=== PATIENT | female | born 1985 | race American Indian/Alaskan Native ===

== ENCOUNTER 2017-02-26 15:48 | Emergency (ER) | payer OTHER ==
--- NOTE | 2017-02-26 19:44 | XRay Report ---
FINAL REPORT EXAM: XR SHOULDER 2+V RT HISTORY: RT SHOULDER PAIN TECHNIQUE: AP, Y, and oblique views of the right shoulder PRIORS: None. FINDINGS: There is no evidence of acute fracture or dislocation. Joint spaces are maintained and bony mineralization is normal. Soft tissues are unremarkable. IMPRESSION: No acute abnormality identified in the right shoulder.
--- NOTE | 2017-02-26 19:58 | Emergency Department Report ---
Upper Extremity - HPI Chief Complaint: Shoulder Injury Stated Complaint: RIGHT ARM PAIN Time Seen by Provider: 02/26/17 19:30 Upper Extremity: Right Shoulder (pain with ROM) Occurred When: 2 Days Mechanism: Hyperextension Severity: moderate Symptoms: Yes Pain with Movement, Yes Limited Range of Movement, No Deformity, No Numbness, No Weakness, No Swelling, No Bruising/Ecchymosis, No Laceration or Abrasion Other History: This is a 31 y.o. female presents with right shoulder pain for 2 days. She remember turn to the right and hearing a pop. She is unable to reach up and her arm feels heavy. States she is taking NSAID's for pain with minimal improvement. Denies numbness, tingling, swelling, or deformity. Denies falling or bumping into something. ED Review of Systems ROS: Stated complaint: RIGHT ARM PAIN Other details as noted in HPI Constitutional: no symptoms reported, see HPI. denies: chills, diaphoresis, fever, malaise, weakness Respiratory: denies: cough, shortness of breath, wheezing Cardiovascular: denies: chest pain, palpitations Gastrointestinal: denies: abdominal pain, nausea, diarrhea Musculoskeletal: arthralgia (right shoulder pain 7/10, decreased ROM) Skin: denies: rash, lesions Neurological: denies: headache, weakness, paresthesias ED Past Medical Hx - Past Medical History Previous Medical History?: No - Surgical History Additional Surgical History: left foot, D&C - Social History Smoking Status: Never Smoker Substance Use Type: None - Medications Home Medications: Home Medications Medication Instructions Recorded Confirmed Last Taken Type HYDROcodone/ACETAMINOPHEN [[place] 1 each PO Q6HR #20 tablet 10/01/13 Unknown Rx 5/325 Tablet] Ibuprofen [Motrin] 600 mg PO Q8H PRN #60 tablet 10/01/13 Unknown Rx Ibuprofen 800 mg PO Q6H PRN #28 tablet 02/26/17 Unknown Rx Tizanidine HCl [Zanaflex] 4 mg PO TID 10 Days #30 capsule 02/26/17 Unknown Rx Upper Extremity Exam - Exam General: Vital signs noted. No distress. Alert and acting appropriately. Head and Torso: Yes HEENT Abnormality, No Neck Tenderness, No Chest/Lungs Abnormality, No Abdominal Tenderness, No Back Tenderness Shoulder Exam: Yes Shoulder Tenderness, Yes AC Joint Tenderness, No Clavicle Tenderness, No Normal Range of Motion in Shoulder (limited ROM independently, 30 degree external rotation passively, unable to tolerate other ROM positions, negative young test), No Shoulder Deformity Arm Exam: No Arm/Humerus Tenderness, No Arm Deformity Elbow: Yes Normal Range of Motion in Elbow, No Elbow Tenderness, No Elbow Deformity Forearm: No Forearm Tenderness, No Forearm Deformity, No Pain with Pronation, No Pain with Supination Wrist: No Wrist Tenderness, No Normal ROM in Wrist, No Wrist Deformity, No Snuffbox Tenderness, No Pain with Axial Thumb Compression Hand: Yes Normal ROM in Digit(s), No Hand Tenderness, No Hand Deformity, No Digit Tenderness, No Digit(s) Deformity, No Tendon Dysfunction CMS Exam: Yes Normal Distal Pulses, Yes Normal Capillary Refill, Yes Normal Distal Sensation, No Broken Skin ED Course Vital Signs 02/26/17 16:45 Temperature 98.6 F Pulse Rate 80 Respiratory 16 Rate Blood Pressure 119/69 O2 Sat by Pulse 100 Oximetry ED Medical Decision Making - Radiology Data Radiology results: image reviewed FINDINGS: There is no evidence of acute fracture or dislocation. Joint spaces are maintained and bony mineralization is normal. Soft tissues are unremarkable. IMPRESSION: No acute abnormality identified in the right shoulder. - Medical Decision Making This is a 31 y.o. female presents with right shoulder pain for 2 days. She heard a pop while turning to the right, with minimal swelling. Denies falling or bumping into something. Limited ROM due to pain. 30 degree extension with passive ROM, unable to tolerate further. Started on ibuprofen and tizanadine Follow up with PCP. Critical care attestation.: If time is entered above; I have spent that time in minutes in the direct care of this critically ill patient, excluding procedure time. ED Disposition Clinical Impression: Shoulder pain, right Qualifiers: Chronicity: acute Qualified Code(s): M25.511 - Pain in right shoulder Shoulder arthralgia Qualifiers: Laterality: right Qualified Code(s): M25.511 - Pain in right shoulder Disposition: - TO HOME OR SELFCARE Is pt being admited?: No Does the pt Need Aspirin: No Condition: Stable Instructions: Shoulder Sprain (ED), Arthralgia (ED) Additional Instructions: Follow up with Primary Care Provider as discussed. Take pain medication as prescribed. Prescriptions: Ibuprofen 800 mg PO Q6H PRN #28 tablet PRN Reason: Pain Tizanidine HCl [Zanaflex] 4 mg PO TID 10 Days #30 capsule Referrals: ATUL METCALF MD [Primary Care Provider] - 3-5 Days [facility] [Outside] - 3-5 Days [facility] [Outside] - 3-5 Days [facility] [Outside] - 3-5 Days Time of Disposition: 20:20 Print Language: TELUGU
[2017-02-26 20:28] VITALS: BP 110/76
== END 2017-02-26 20:25 | disposition home or self-care (01) ==
LOC: ED 15:48
DX: M25.511 Pain in right shoulder (principal); Z88.2 Allergy status to sulfonamides
CPT/HCPCS: 99283

== ENCOUNTER 2017-06-20 06:37 | Emergency (ER) | payer OTHER ==
[2017-06-20 06:45] VITALS: BP 126/93
--- NOTE | 2017-06-20 07:38 | Emergency Department Report ---
[facility] Chief Complaint: Eye Problems Stated Complaint: RIGHT EYE PAIN Time Seen by Provider: 06/20/17 07:26 Duration: 1 Day Severity: mild (1/10 irritated) Symptoms: Yes Eye Itching (right eye), Yes Eye Redness (right eye without any injury), Yes Eye Pain (1/10), Yes Mucous Drainage (matting in this morning), Yes Contact Lens Use (she wears contacts but that she took her contacts out yesterday and she doesn't have any foreign body sensation. Most wears glasses which she doesn't have with her), No Purulent Drainage, No Blurred Vision, No Preceding URI, No H/O Allergic Rhinitis, No Trauma, No Fever, No Headache Other History: Patient reports that she woke up this morning and her right eye was closed shut his that she's been having itching and redness with some irritation of 1/10 since yesterday. Denies any other symptoms. Denies any trauma or blurred vision. Denies any fever or chills. Denies any cough or respiratory symptoms. No medication taken for eye irritation. No foreign body sensation. Nothing makes it better and nothing makes it worse ED Review of Systems ROS: Stated complaint: RIGHT EYE PAIN Other details as noted in HPI Comment: All other systems reviewed and negative Constitutional: no symptoms reported Eyes: eye pain, eye discharge, other (I redness right). denies: vision change ENT: denies: ear pain, throat pain, dental pain, hearing loss, epistaxis, congestion Respiratory: no symptoms reported Cardiovascular: denies: chest pain, palpitations, dyspnea on exertion, orthopnea , edema, syncope, paroxysmal nocturnal dyspnea Musculoskeletal: denies: back pain, joint swelling, arthralgia, myalgia Skin: denies: rash Neurological: denies: headache, numbness, paresthesias, confusion, abnormal gait , vertigo ED Past Medical Hx - Past Medical History Previous Medical History?: No - Surgical History Past Surgical History?: Yes Additional Surgical History: left foot, D&C - Family History Family history: no significant - Social History Smoking Status: Never Smoker Substance Use Type: None - Medications Home Medications: Home Medications Medication Instructions Recorded Confirmed Last Taken Type HYDROcodone/ACETAMINOPHEN [[place] 1 each PO Q6HR #20 tablet 10/01/13 Unknown Rx 5/325 Tablet] Ibuprofen [Motrin] 600 mg PO Q8H PRN #60 tablet 10/01/13 Unknown Rx Ibuprofen 800 mg PO Q6H PRN #28 tablet 02/26/17 Unknown Rx Tizanidine HCl [Zanaflex] 4 mg PO TID 10 Days #30 capsule 02/26/17 Unknown Rx Gentamicin 0.3% Ophth Soln 2 drops OD Q6H 7 Days #1 bottle 06/20/17 Unknown Rx [facility] Exam - Exam General: Vital signs noted. No distress. Alert and acting appropriately. This is a 32-year-old female well-nourished well-developed in no acute distress. Eye Exam: Right Injection, Right Mucous Discharge, Both EOMI (see visual acuity charted by RN), Both Lid Foreign Body, Neither Chemosis, Neither Abnormal Pupil , Neither Eye Foreign Body, Neither Purulent Discharge, Neither Corneal Edema, Neither Photophobia HEENT: No Nasal Congestion, No Pharyngeal Erythema Remainder of HEENT: Normal Lungs: Yes Clear Lung Sounds (CTAB), No Good Air Exchange, No Wheezes, No Stridor, No Cough, No Nasal Flaring, No Retractions, No Use of Accessory Muscles Exam: Neck: Supple, full range of motion and no lymphadenopathy. Lungs: Clear to auscultate bilaterally, no rhonchi wheezes or rales. Normal work of breathing and. CV: S1, S2. Regular rate and rhythm no murmur. Skin: Clean, dry and intact no rashes or lesions. Psych: Normal mood and behavior ED Course Vital Signs 06/20/17 06:42 Temperature 98.6 F Pulse Rate 76 Respiratory 16 Rate Blood Pressure 126/93 O2 Sat by Pulse 100 Oximetry - Reevaluation(s) Reevaluation #1: 06/20/17 08:33 She is stable throughout ED course. Visual acuity done ED Medical Decision Making - Medical Decision Making ED course: This is a 32-year-old female that's here complaining and off read, irritated right eye that was matted shut this morning when she woke up. Patient with physical finding for right conjunctivitis and although she wears contacts she does not have any foreign body sensation and said that she does not wear contact a lot she usually wears her glasses she does not have with her. Please see augmentation visual acuity. I discussed the patient she needs to follow-up with user support analyst in the morning and she was discharged home a prescription for gentamicin ophthalmic eyedrops. Tetanus vaccine is up-to-date Critical care attestation.: If time is entered above; I have spent that time in minutes in the direct care of this critically ill patient, excluding procedure time. ED Disposition Clinical Impression: Conjunctivitis, right eye Qualifiers: Conjunctivitis type: acute Acute conjunctivitis type: unspecified Qualified Code(s): H10.31 - Unspecified acute conjunctivitis, right eye Disposition: - TO HOME OR SELFCARE Is pt being admited?: No Does the pt Need Aspirin: No Condition: Stable Instructions: Conjunctivitis (ED) Additional Instructions: Avoid wearing contacts at the eyes are completely better. Take gentamicin eyedrops for [facility] good hand hygiene See Discharge ejection on conjunctivitis Follow-up with user support analyst in the morning Prescriptions: Gentamicin 0.3% Ophth Soln 2 drops OD Q6H 7 Days #1 bottle Referrals: PRIMARY CAREMD [Primary Care Provider] - 2-3 Days [facility] [Outside] - 2-3 Days HO CALERO MD [Staff Physician] - 24 Hours Forms: Work/School Release Form(ED)
== END 2017-06-20 08:41 | disposition home or self-care (01) ==
LOC: ED 06:37
DX: H10.9 Unspecified conjunctivitis (principal)
CPT/HCPCS: 99282

== ENCOUNTER 2018-12-26 09:10 | Emergency (ER) | payer SELFPAY ==
[2018-12-26 09:17] VITALS: BP 108/73
--- NOTE | 2018-12-26 10:43 | Emergency Department Report ---
Abscess Boil HPI - HPI Chief Complaint: Skin/Abscess/Foreign Body Stated Complaint: BUMP ON CHEST Time Seen by Provider: 12/26/18 09:35 Duration: 2 Days Location: Chest History: No Fever, No Pain, No Purulent Drainage, No Numbness, No Foreign Body, No Previous History, No Insect Bite HPI: This is a 33-year-old female nontoxic, well nourished in appearance, no acute signs of distress presents to the ED with c/o of redness and pain to midsternum chest area. Patient denies any pus or drainage. Patient denies any fever, chills, nausea, vomiting, chest pain, shortness of breath, headache or stiff neck. Patient denies any allergies or significant past medical history. Patient stated she is up-to-date with tetanus within 5 years. Home Medications: Previous Rx's Medication Instructions Recorded Last Taken Type HYDROcodone/ACETAMINOPHEN [[place] 1 each PO Q6HR #20 tablet 10/01/13 Unknown Rx 5/325 Tablet] Ibuprofen [Motrin] 600 mg PO Q8H PRN #60 tablet 10/01/13 Unknown Rx Ibuprofen 800 mg PO Q6H PRN #28 tablet 02/26/17 Unknown Rx Tizanidine HCl [Zanaflex 4mg CAP] 4 mg PO TID 10 Days #30 capsule 02/26/17 Unknown Rx Gentamicin 0.3% Ophth Soln 2 drops OD Q6H 7 Days #1 bottle 06/20/17 Unknown Rx Acetaminophen/Codeine [Tylenol 1 tab PO Q6H PRN #12 tab 12/26/18 Unknown Rx /Codeine # 3 tab] cephALEXin [Keflex] 500 mg PO Q8HR #14 cap 12/26/18 Unknown Rx Allergies/Adverse Reactions: Allergies Allergy/AdvReac Type Severity Reaction Status Date / Time Sulfa (Sulfonamide Allergy Dizziness Verified 02/26/17 16:45 Antibiotics) ED Review of Systems ROS: Stated complaint: BUMP ON CHEST Other details as noted in HPI Constitutional: denies: chills, fever Eyes: denies: eye pain, eye discharge, vision change ENT: denies: ear pain, throat pain Respiratory: denies: cough, shortness of breath, wheezing Cardiovascular: denies: chest pain, palpitations Endocrine: no symptoms reported Gastrointestinal: denies: abdominal pain, nausea, diarrhea Genitourinary: denies: urgency, dysuria, discharge Musculoskeletal: denies: back pain, joint swelling, arthralgia Skin: denies: rash, lesions Neurological: denies: headache, weakness, paresthesias Psychiatric: denies: anxiety, depression Hematological/Lymphatic: denies: easy bleeding, easy bruising ED Past Medical Hx - Past Medical History Previous Medical History?: No - Surgical History Past Surgical History?: Yes Additional Surgical History: left foot, D&C - Social History Smoking Status: Never Smoker - Medications Home Medications: Home Medications Medication Instructions Recorded Confirmed Last Taken Type HYDROcodone/ACETAMINOPHEN [[place] 1 each PO Q6HR #20 tablet 10/01/13 Unknown Rx 5/325 Tablet] Ibuprofen [Motrin] 600 mg PO Q8H PRN #60 tablet 10/01/13 Unknown Rx Ibuprofen 800 mg PO Q6H PRN #28 tablet 02/26/17 Unknown Rx Tizanidine HCl [Zanaflex 4mg CAP] 4 mg PO TID 10 Days #30 capsule 02/26/17 Unknown Rx Gentamicin 0.3% Ophth Soln 2 drops OD Q6H 7 Days #1 bottle 06/20/17 Unknown Rx Acetaminophen/Codeine [Tylenol 1 tab PO Q6H PRN #12 tab 12/26/18 Unknown Rx /Codeine # 3 tab] cephALEXin [Keflex] 500 mg PO Q8HR #14 cap 12/26/18 Unknown Rx ED Abscess Boil Physical Exam - Exam General: Vital signs noted. No distress. Alert and acting appropriately. Front/Back of Body, Lg (Color): 1 - 1 cm small abscess present Size: 1 cm Exam: Yes Tenderness, Yes Fluctuance, Yes Normal Neurologic Exam, Yes Normal Circulation, No Surrounding Cellulites/Erythema, No Lymphangitis, No Crepitation, No Heart Murmur I & D Note - I & D Note I & D Note: Under sterile field, I used Betadine to cleanse the area. I then used 6 ml syringe with a 20-gauge hypo-needle and aspirated about 0.5 mL of purulent drainage. I then used sterile 0.9% normal saline flush to flush the wound with total volume of 40 mL used. A sterile 4 x 4 with tape has been applied as dressing. Bleeding is under control. Patient tolerated the procedure well with no signs of distress noted. ED Course Vital Signs 12/26/18 09:17 Temperature 98.8 F Pulse Rate 78 Respiratory 16 Rate Blood Pressure 108/73 [Right] O2 Sat by Pulse 98 Oximetry - Reevaluation(s) Reevaluation #1: 12/26/18 10:42 Patient is speaking in full sentences with no signs of distress noted. Critical care attestation.: If time is entered above; I have spent that time in minutes in the direct care of this critically ill patient, excluding procedure time. ED Medical Decision Making - Medical Decision Making This is a 33-year-old female that presents with abscess. Patient is stable and was examined by me. A sterile dressing has been applied. Patient was educated on proper wound care. Patient is discharged with Keflex and Tylenol with codeine and was instructed not to operate any machinery while taking Tylenol with codeine due to drowsiness. Patient was instructed to refer to Follow-up with a primary care doctor in 3-5 days or if symptoms worsen and continue return to emergency room as soon as possible. At time of discharge, the patient does not seem toxic or ill in appearance. No acute signs of distress noted. Patient agrees to discharge treatment plan of care. No further questions noted by the patient. ED Disposition Clinical Impression: Abscess, Encounter for incision and drainage procedure Disposition: DC-01 TO HOME OR SELFCARE Is pt being admited?: No Does the pt Need Aspirin: No Condition: Stable Instructions: Abscess Incision and Drainage (ED), Abscess (ED), Aceta minophen/Codeine (By mouth) Additional Instructions: Follow-up with a primary care doctor in 3-5 days or if symptoms worsen and continue return to emergency room as soon as possible. Do not operate any machinery while taking Tylenol with codeine as this may cause drowsiness. Prescriptions: cephALEXin [Keflex] 500 mg PO Q8HR #14 cap Acetaminophen/Codeine [Tylenol /Codeine # 3 tab] 1 tab PO Q6H PRN #12 tab PRN Reason: Pain , Severe (7-10) Referrals: PRIMARY CARE, [Referring] - 3-5 Days SUJIT CARTER MD [Staff Physician] - 3-5 Days [facility] [Outside] - 3-5 Days [facility] [Outside] - 3-5 Days Forms: Work/School Release Form(ED)
== END 2018-12-26 11:00 | disposition home or self-care (01) ==
LOC: ED 09:10
DX: L02.213 Cutaneous abscess of chest wall (principal); Z98.890 Other specified postprocedural states; Z79.899 Other long term (current) drug therapy; Z88.2 Allergy status to sulfonamides

== ENCOUNTER 2019-04-08 22:13 | Emergency (ER) | payer SELFPAY ==
[2019-04-09 00:03] VITALS: BP 124/68
== END 2019-04-09 00:50 | disposition left against medical advice (07) ==
LOC: ED 22:13
DX: M79.18 Myalgia, other site (principal); Z53.21 Procedure and treatment not carried out due to patient leaving prior to being seen by health care provider

== ENCOUNTER 2020-08-12 17:55 | Emergency (ER) | payer OTHER ==
[2020-08-12 20:02] VITALS: BP 126/85
--- NOTE | 2020-08-12 20:41 | Emergency Department Report ---
ED General Adult HPI - General Chief complaint: Skin Rash Stated complaint: RASH Time Seen by Provider: 08/12/20 19:51 Source: patient Mode of arrival: Ambulatory Limitations: No Limitations - History of Present Illness Initial comments: 35-year-old -[place] female patient presents with complaints of painful rash to left forearm starting yesterday. She denies any itching, difficulty moving her limbs, or fever/chills/sweats. She rates her pain as a 3/10 in severity and states it only occurs with touch. She is unsure if she had contact with any new substances. She states she believes it is a spider bite. -: Sudden - Related Data Previous Rx's Medication Instructions Recorded Last Taken Type HYDROcodone/ACETAMINOPHEN [[place] 1 each PO Q6HR #20 tablet 10/01/13 Unknown Rx 5/325 Tablet] Ibuprofen [Motrin] 600 mg PO Q8H PRN #60 tablet 10/01/13 Unknown Rx Ibuprofen 800 mg PO Q6H PRN #28 tablet 02/26/17 Unknown Rx Tizanidine HCl [Zanaflex 4mg CAP] 4 mg PO TID 10 Days #30 capsule 02/26/17 Unknown Rx Gentamicin 0.3% Ophth Soln 2 drops OD Q6H 7 Days #1 bottle 06/20/17 Unknown Rx Acetaminophen/Codeine [Tylenol 1 tab PO Q6H PRN #12 tab 12/26/18 Unknown Rx /Codeine # 3 tab] cephALEXin [Keflex] 500 mg PO Q8HR #14 cap 12/26/18 Unknown Rx Doxycycline Hyclate [Doxycycline 100 mg PO Q12HR 7 Days #14 tab 08/12/20 Unknown Rx Hyclate TAB] Triamcinolone Acetonide 15 gm TP TID PRN 7 Days #1 08/12/20 Unknown Rx oint...g. Allergies Allergy/AdvReac Type Severity Reaction Status Date / Time Sulfa (Sulfonamide Allergy Dizziness Verified 02/26/17 16:45 Antibiotics) ED Review of Systems ROS: Stated complaint: RASH Other details as noted in HPI Constitutional: denies: chills, fever, malaise Skin: rash. denies: lesions ED Past Medical Hx - Past Medical History Previous Medical History?: No - Surgical History Past Surgical History?: Yes Additional Surgical History: left foot, D&C - Social History Smoking Status: Never Smoker - Medications Home Medications: Home Medications Medication Instructions Recorded Confirmed Last Taken Type HYDROcodone/ACETAMINOPHEN [[place] 1 each PO Q6HR #20 tablet 10/01/13 Unknown Rx 5/325 Tablet] Ibuprofen [Motrin] 600 mg PO Q8H PRN #60 tablet 10/01/13 Unknown Rx Ibuprofen 800 mg PO Q6H PRN #28 tablet 02/26/17 Unknown Rx Tizanidine HCl [Zanaflex 4mg CAP] 4 mg PO TID 10 Days #30 capsule 02/26/17 Unknown Rx Gentamicin 0.3% Ophth Soln 2 drops OD Q6H 7 Days #1 bottle 06/20/17 Unknown Rx Acetaminophen/Codeine [Tylenol 1 tab PO Q6H PRN #12 tab 12/26/18 Unknown Rx /Codeine # 3 tab] cephALEXin [Keflex] 500 mg PO Q8HR #14 cap 12/26/18 Unknown Rx Doxycycline Hyclate [Doxycycline 100 mg PO Q12HR 7 Days #14 tab 08/12/20 Unknown Rx Hyclate TAB] Triamcinolone Acetonide 15 gm TP TID PRN 7 Days #1 08/12/20 Unknown Rx oint...g. ED Physical Exam - General Limitations: No Limitations General appearance: alert, in no apparent distress - Head Head exam: Present: atraumatic, normocephalic - Eye Eye exam: Present: normal appearance - Respiratory Respiratory exam: Absent: respiratory distress - Cardiovascular Cardiovascular Exam: Present: regular rate - Neurological Exam Neurological exam: Present: alert, oriented X3 - Psychiatric Psychiatric exam: Present: normal affect, normal mood - Skin Skin exam: Present: warm, dry, intact, normal color, rash (3 mildly erythemic round/ovoid areas noted to left forearm with tenderness to palpation; no fluctuance or induration noted) ED Course Vital Signs 08/12/20 19:44 Temperature 98.2 F Pulse Rate 69 Respiratory 18 Rate Blood Pressure 126/85 O2 Sat by Pulse 100 Oximetry ED Medical Decision Making - Medical Decision Making 35-year-old -[place] female patient presents with complaints of painful rash to left forearm starting yesterday. She denies any itching, difficulty moving her limbs, or fever/chills/sweats. She rates her pain as a 3/10 in severity and states it only occurs with touch. She is unsure if she had contact with any new substances. She states she believes it is a spider bite. Contact dermatitis versus insect bite. Will treat with triamcinolone. Given pain, will cover for skin infection with Doxy given patient is allergic to sulfa. Recommend follow-up with PCP in 3 to 5 days. She is well-appearing, her vitals are within normal limits, she is stable for discharge home. Strict return precautions were discussed in detail with patient who verbalizes understanding. Critical care attestation.: If time is entered above; I have spent that time in minutes in the direct care of this critically ill patient, excluding procedure time. ED Disposition Clinical Impression: Rash Disposition: DC-01 TO HOME OR SELFCARE Is pt being admited?: No Condition: Stable Instructions: Rash, Adult, Contact Dermatitis Prescriptions: Doxycycline Hyclate [Doxycycline Hyclate TAB] 100 mg PO Q12HR 7 Days #14 tab Triamcinolone Acetonide 15 gm TP TID PRN 7 Days #1 oint...g. PRN Reason: itching, pain Referrals: [facility] [Provider Group] - 3-5 Days
== END 2020-08-12 21:12 | disposition home or self-care (01) ==
LOC: ED 17:55
DX: R21 Rash and other nonspecific skin eruption (principal); Z98.890 Other specified postprocedural states; Z88.2 Allergy status to sulfonamides; Z79.899 Other long term (current) drug therapy
CPT/HCPCS: 99281

== ENCOUNTER 2020-09-19 10:47 | Emergency (ER) | payer OTHER ==
[2020-09-19 10:52] VITALS: BP 134/79
--- NOTE | 2020-09-19 13:13 | Emergency Department Report ---
ED Rash HPI - HPI Chief Complaint: Skin Rash Stated Complaint: RASH ON ARMS AND LEGS Time Seen by Provider: 09/19/20 12:50 Duration: 2 Days Location: Upper Extremities (inner upper arms), Lower Extremities (inner thighs) Rash Symptoms: No Itching, No Facial Swelling, No Tongue/Oral Swelling, No Breathing Difficulties, No Choking Sensation, No Wheezing/Dyspnea, No Peeling, No Blistering, No Fever, No Lightheaded, No Malaise, No Myalgias Severity: mild Other History: Patient complains of a rash to the inner aspect of upper arm and inner aspect of her thighs which she noticed 2 days ago. She describes as a bumpy rash. She states that it does not itch nor is it painful or sore to touch. She denies any known new contacts, such as soaps, lotions, deodorants, etc. She denies any associated cough, swelling, wheezing, shortness of breath or any other symptoms at this time. ED Review of Systems ROS: Stated complaint: RASH ON ARMS AND LEGS Other details as noted in HPI Comment: All other systems reviewed and negative Constitutional: denies: chills, fever Eyes: denies: eye pain, eye discharge, vision change ENT: denies: ear pain, throat pain, dental pain, hearing loss, congestion Respiratory: denies: cough, shortness of breath, SOB with exertion, SOB at rest, wheezing Cardiovascular: denies: chest pain, palpitations Gastrointestinal: denies: abdominal pain, nausea, diarrhea, constipation, hematemesis, melena Genitourinary: denies: urgency, dysuria, frequency, hematuria, discharge, abnormal menses, dyspareunia Musculoskeletal: denies: back pain, joint swelling, arthralgia, myalgia Skin: rash. denies: lesions, change in color, change in hair/nails, pruritus Neurological: denies: headache, weakness, numbness, paresthesias, confusion, abnormal gait, vertigo Psychiatric: denies: anxiety, depression, auditory hallucinations, visual hallucinations, homicidal thoughts, suicidal thoughts Hematological/Lymphatic: denies: easy bleeding, easy bruising, swollen glands ED Past Medical Hx - Past Medical History Previous Medical History?: No - Surgical History Past Surgical History?: Yes Additional Surgical History: left foot, D&C - Social History Smoking Status: Never Smoker - Medications Home Medications: Home Medications Medication Instructions Recorded Confirmed Last Taken Type HYDROcodone/ACETAMINOPHEN [[place] 1 each PO Q6HR #20 tablet 10/01/13 Unknown Rx 5/325 Tablet] Ibuprofen [Motrin] 600 mg PO Q8H PRN #60 tablet 10/01/13 Unknown Rx Ibuprofen 800 mg PO Q6H PRN #28 tablet 02/26/17 Unknown Rx Tizanidine HCl [Zanaflex 4mg CAP] 4 mg PO TID 10 Days #30 capsule 02/26/17 Unknown Rx Gentamicin 0.3% Ophth Soln 2 drops OD Q6H 7 Days #1 bottle 06/20/17 Unknown Rx Acetaminophen/Codeine [Tylenol 1 tab PO Q6H PRN #12 tab 12/26/18 Unknown Rx /Codeine # 3 tab] cephALEXin [Keflex] 500 mg PO Q8HR #14 cap 12/26/18 Unknown Rx Doxycycline Hyclate [Doxycycline 100 mg PO Q12HR 7 Days #14 tab 08/12/20 Unknown Rx Hyclate TAB] Triamcinolone Acetonide 15 gm TP TID PRN 7 Days #1 08/12/20 Unknown Rx oint...g. Triamcinolone 0.1% [Kenalog 0.1% 1 applic TP BID #1 tube 09/19/20 Unknown Rx CREAM] Rash Exam - Exam General: Vital signs noted. No distress. Alert and acting appropriately. HEENT: No Periorbital Edema, No Conjuctival Injection, No Chemosis, No Perioral Edema, No Tongue Edema, No Uvular Edema, No Compromised Airway, No Drooling Lungs: No Good Air Exchange, No Wheezes, No Ronchi, No Stridor, No Cough, No Labored Respirations, No Retractions, No Use of Accessory Muscles, No Other Abnormal Lung Sounds Heart: Yes Regular, Yes Murmur Skin: Yes Other (Small mild papular rash noted inner aspect of the upper arms and the medial aspect of the upper thighs. No excoriation, erythema or bruising. No signs of secondary bacterial infection.), No Urticarial Rash, No Morbilliform rash, No Bulla(e), No Excoriations, No Weeping, No Tenderness, No Erythema, No Edema, No Encrustations Other: Positive: Abdomen Normal, Neurologic Normal, Musculoskeletal Normal ED Course Vital Signs 09/19/20 10:51 Temperature 98.8 F Pulse Rate 91 H Respiratory 16 Rate Blood Pressure 134/79 O2 Sat by Pulse 100 Oximetry Critical care attestation.: If time is entered above; I have spent that time in minutes in the direct care of this critically ill patient, excluding procedure time. ED Disposition Clinical Impression: Contact dermatitis Disposition: DC-01 TO HOME OR SELFCARE Is pt being admited?: No Does the pt Need Aspirin: No Condition: Stable Instructions: Contact Dermatitis Additional Instructions: Use the steroid cream as prescribed. Do not use peroxide or alcohol, but you can use just soap and water to clean. Keep the areas dry. Follow up with PCP if not better. Return to ED if worse. Prescriptions: Triamcinolone 0.1% [Kenalog 0.1% CREAM] 1 applic TP BID #1 tube Referrals: [facility] [Provider Group] - 7-10 days Time of Disposition: 13:14
== END 2020-09-19 13:36 | disposition home or self-care (01) ==
LOC: ED 10:47
DX: L25.9 Unspecified contact dermatitis, unspecified cause (principal)
CPT/HCPCS: 99281

== ENCOUNTER 2021-08-30 13:11 | Emergency (ER) | payer SELFPAY ==
[2021-08-30 14:30] VITALS: BP 129/91
--- NOTE | 2021-08-30 14:32 | Emergency Department Report ---
Stated Complaint: BLEEDING BLOOD CLOT MISCARRIAG Time Seen by Provider: 08/30/21 14:30 - HPI History of Present Illness: positive test at home last week, woke this am in a poodle of blood with clots. - ROS Review of Systems: vaginal bleeding in . - Exam Physical Exam: alert and oriented. MSE screening note: Focused history and physical exam performed. Due to findings the following was ordered: serum quant hcg, ua, cbc. patient will be evaluated by provider when she gets a room. ED Disposition for MSE Condition: Stable
[2021-08-30 15:26] LABS: Hematocrit 39.7 % (30.3-42.9); Hemoglobin 12.9 gm/dl (10.1-14.3); Mean Corpuscular HGB Conc 33 % (30-34); Mean Corpuscular Volume 88 fl (79-97); Platelet Count 229 K/mm3 (140-440); Red Blood Count 4.53 M/mm3 (3.65-5.03)
== END 2021-08-30 19:00 | disposition left against medical advice (07) ==
LOC: ED 13:11
DX: O03.9 Complete or unspecified spontaneous abortion without complication (principal); Z53.21 Procedure and treatment not carried out due to patient leaving prior to being seen by health care provider
CPT/HCPCS: 36415; 84702; 85027